=== PATIENT | female | born 1970 | race Two or more races ===

== ENCOUNTER 2020-06-26 13:12 | Emergency (ER) | payer SELFPAY ==
[~2020-06-26] VITALS: Ht 162.6 cm; Wt 65.8 kg
[2020-06-26 13:12] VITALS: BP 137/96
== END 2020-06-26 13:50 | disposition left against medical advice (07) ==
LOC: ER 13:12 → EDBD 13:12 → ER 13:50
DX: T50.901A Poisoning by unspecified drugs, medicaments and biological substances, accidental (unintentional), initial encounter (principal); X58.XXXA Exposure to other specified factors, initial encounter; Y93.89 Activity, other specified; Y92.89 Other specified places as the place of occurrence of the external cause; Y99.8 Other external cause status
CPT/HCPCS: 93005

== ENCOUNTER 2020-08-02 18:08 | Emergency (ER) | payer SELFPAY ==
[~2020-08-02] VITALS: Ht 172.7 cm; Wt 68.0 kg
[2020-08-02 18:29] VITALS: BP 150/66
== END 2020-08-02 18:52 | disposition left against medical advice (07) ==
LOC: EDBD 18:08 → ER 18:13
DX: T65.91XA Toxic effect of unspecified substance, accidental (unintentional), initial encounter (principal); Z53.21 Procedure and treatment not carried out due to patient leaving prior to being seen by health care provider; Y92.89 Other specified places as the place of occurrence of the external cause